=== PATIENT | male | born 1970 | race Caucasian/White ===

== ENCOUNTER 2017-02-04 10:57 | Emergency (ER) | payer BC ==
[~2017-02-04] VITALS: Ht 182.9 cm; Wt 103.0 kg
[2017-02-04] MEDS ORDERED: MOTRIN600 MG PO (12:54)
[2017-02-04 13:22] VITALS: BP 142/84
[2017-02-04] MEDS ORDERED: TRAMADOL HCL50 MG PO (13:24)
== END 2017-02-04 13:22 | disposition home or self-care (01) ==
LOC: EME 10:57
DX: S40.012A Contusion of left shoulder, initial encounter (principal); V19.9XXA Pedal cyclist (driver) (passenger) injured in unspecified traffic accident, initial encounter; Y93.55 Activity, bike riding
CPT/HCPCS: 73030; 99281; 99283